=== PATIENT | male | born 1955 | race American Indian/Alaskan Native ===

== ENCOUNTER 2020-05-05 11:37 | Outpatient (CLI) | payer MEDICARE, SELFPAY ==
--- NOTE | 2020-05-05 11:47 | CT_ITS ---
WS: [id number] CTA CHEST ABDOMEN AND PELVIS. HISTORY: Aortic atherosclerosis. Short of breath. TECHNIQUE: CT angiogram is performed through the chest with and without contrast. CT angiogram with c ontrast through the abdomen and pelvis with IV contrast. Sagittal and coronal reformats have been sub mitted. MIP imaging also reviewed. All CT scans at [facility] use at least one of these d ose optimization techniques: automated exposure control; mA and/or kV adjustment per patient size (in cludes targeted exams where dose is matched to clinical indication); or iterative reconstruction. Contrast: Omnipaque 350; 95 cc IV. DLP: 2763.06 mGy.cm COMPARISON: None. Chest CTA: Good opacification of the thoracic aorta. Great vessels arise normally. Normal size of the thoracic aorta. No dissection or aneurysm. No ulcerating plaques. Pulmonary artery is normal size. H eart size is normal. No pericardial or pleural effusions. Mild hyperexpansion of the lungs. No pneumo america. Benign granuloma superior segment LEFT lower lobe. Mediastinal and hilar lymph nodes. Largest ly mph node at the RIGHT hilum measures 12 mm in short axis diameter. Small hiatal hernia. Abdomen CTA: Normal size liver. Gallbladder has been removed. Spleen, adrenal glands and kidneys are negative for acute process. Exophytic cyst from the mid LEFT kidney. No renal obstruction. Normal abdominal aorta. No aneurysm. Iliac arteries are patent bilaterally. Normal appendix. Ventral abdominal wall hernia. Pelvic CTA: Normal appearance of the iliac arteries and femoral arteries. No obstruction. No aneurysm or dissection. No free fluid in the pelvis. Negative urinary bladder. Mild prostate gland enlargemen t. No adenopathy. CT/CT angio chest abdomen pelvis IMPRESSION: 1. Minimal atherosclerosis thoracic and abdominal aorta. No dissection or aneu rysm. 2. Prior cholecystectomy. 3. No pneumonia. 4. Mildly prominent lymph nodes in the mediastinum are probably reactive. 5. No GI tract obstruction. 6. LEFT renal cyst.
[2020-05-05 13:03] LABS: Blood Urea Nitrogen 19 mg/dL (8-23); Glomerular Filtration Rate 46.8 mL/min (90-130)
[2020-05-05] MEDS: iohexol 350 mg/mL 100 mL Btl IV (15:03)
== END 2020-05-05 11:38 | disposition home or self-care (01) ==
LOC: RAD 11:44
PROVIDERS: PCP Family Medicine; Visit Provider Registered Nurse
DX: I70.0 Atherosclerosis of aorta (principal); R06.02 Shortness of breath; N28.1 Cyst of kidney, acquired
CPT/HCPCS: 36415; 71275; 74174; 82565; 84520

== ENCOUNTER 2020-10-13 08:08 | Outpatient (CLI) | payer MEDICARE, SELFPAY ==
[2020-10-13 08:17] VITALS: BMI 32.3
--- NOTE | 2020-10-13 08:30 | ECG_ITS ---
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 Interpretive Statements NAME OF STUDY: LEXISCAN SESTAMIBI STRESS TEST INDICATION: [Chest Pain] Procedure: At the baseline, the blood pressure was 141/99 mmHg with a heart rate of 53 bpm. The electrocardiogram showed sinus bradycardia, normal axis with normal ST and T's. The Lexiscan was infused over a period of 20 seconds. A total of 0.4 mg of Lexiscan was infused. The stress phase was continued for a total of 5 minutes. Heart rate was at the end of stress phase was 63 bpm and a blood pressure of 132/97 mmHg. The EKG at the peak infusion revealed since normal sinus rhythm with no significant ST-T wave changes. Sestamibi was injected 20 seconds after the Lexiscan infusion. Blood pressure at the end of recovery phase was 150/99 mmHg with a heart rate of 62 bpm. Conclusion: 1. Normal EKG response to Lexiscan infusion 2. No Lexiscan induced chest pain or cardiac arrhythmia. 3. Normal blood pressure and heart rate response. 4. Sestamibi/sestamibi perfusion scan pending; see separate report. Electronically Signed On 10-21-2020 12:35:01 CDT by Jaylen Schneider M.D. [id number]
--- NOTE | 2020-10-13 08:30 | NMCV_ITS ---
NM emil perf SPECT r/s* [id number] Mason Kulkarni Age: 65 Gender: M : 1955 Exam Date: 10/13/2020 09:24 Ordering Phys: Ric Solorio MD ([email or web address]) Technologist: DANNY Canas Exam Location: [facility] Indications: Chest pain STRESS TEST Please see separate stress test report in [facility] for full findings IMAGE PROTOCOL Rest/Stress 1 Lexiscan Day Radiopharmaceutical Dose (mCi) Administration Site Administered by Rest: Tc-99m 10.8 IV DANNY Canas Sestamibi Stress:Tc-99m 32.0 IV DANNY Canas Sestamilluvia Rest: 13-Oct-2020 60 Discovery 630 Stress: 13-Oct-2020 45 Discovery 630 0.4mg Lexiscan. Images obtained in supine and prone position. SPECT RESULTS Technical Quality: Good Raw Data Analysis: Normal Image Corrections: No attenuation or motion correction applied Summed Stress Score: 2 Summed Rest Score: 5 Summed Difference Score: 0 PERFUSION FINDINGS There is a small in size, mild in intensity perfusion defect noted in the apical and apical lateral wall that improves on stress. This likely represents attenuation artifact. No significant ischemia is noted FUNCTIONAL RESULTS (calculated via Gated SPECT) Stress Image LV EF (%): 67 Stress EDV (mL):101 TID: 1 Stress ESV (mL):33 FUNCTIONAL FINDINGS: Normal LV systolic function IMPRESSIONS 1. No evidence of ischemia present. Attenuation artifact in the apical/apical lateral rojas noted. 2. LV systolic function is normal Jaylen Schneider MD (Electronically Signed) Final Date: 15 Oct 2020 18:07 S
[2020-10-13] MEDS: regadenoson 0.4 Mg/5 ml Syringe IVP (09:59)
[2020-10-13 10:10] VITALS: BP 150/99; PULSE 63
== END 2020-10-13 08:09 | disposition home or self-care (01) ==
LOC: CDL 08:11
PROVIDERS: PCP Family Medicine; Visit Provider Internal Medicine Cardiovascular Disease
DX: R07.9 Chest pain, unspecified (principal)
CPT/HCPCS: 78452; 93017; A9500; J2785

== ENCOUNTER 2020-10-26 10:28 | Outpatient (CLI) | payer MEDICARE, SELFPAY ==
[2020-10-26 11:43] LABS: Basophils % 0.8 %; Eosinophils # 0.3 10^3/uL (0.0-0.8); Hematocrit 52.1 % (42.0-52.0); Hemoglobin 17.3 g/dL (11.7-16.6); Lymphocytes # 1.7 10^3/uL (0.8-4.8); Lymphocytes % 31.5 %; Mean Corpuscular HGB Conc 33.2 g/dL (30.0-36.0); Mean Corpuscular Volume 93.4 fL (80-94); Monocytes # 0.5 10^3/uL (0.2-0.9); Monocytes % 8.7 %; Neutrophils # 2.79 10^3/uL (1.8-7.7); Neutrophils % 52.6 %; Nucleated Red Blood Cells % 0 %; Platelet Count 159 10^3/cmm (130-400); Red Blood Count 5.58 10^6/uL (4.1-5.3); Red Cell Distribution Width 13.8 % (12.1-15.1); White Blood Count 5.3 10^3/uL (4.0-10.0)
[2020-10-26 12:09] LABS: Alanine Aminotransferase 22 U/L (0-41); Albumin Level 4.3 g/dL (3.5-5.2); Alkaline Phosphatase 59 IU/L (40-130); Anion Gap 12.2 (5-19); Aspartate Amino Transferase 21 U/L (0-40); Blood Urea Nitrogen 18 mg/dL (8-23); C Reactive Protein 1.1 mg/L (0.0-4.9); Calcium 8.9 mg/dL (8.5-10.5); Carbon Dioxide 28 mmol/L (22-29); Chloride 100 mmol/L (98-107); Globulin 3.4 g/dL (1.3-4.6); Glomerular Filtration Rate 55.1 mL/min (90-130); Glucose 93 mg/dL (65-115); Osmolality Calculated 284 mOsm/kg (285-295); Potassium 4.2 mmol/L (3.5-5.1); Sodium 136 mmol/L (136-145); Total Bilirubin 0.7 mg/dL (0.15-1.2); Total Protein 7.7 g/dL (6.6-8.7)
[2020-10-26 12:28] LABS: Erythrocyte Sedimentation Rate > 120 mm/hr (0-10)
[2020-10-27 12:52] LABS: Anti-Double Strand DNA AB <1 IU/mL; Centromere B Antibody <1.0 NEG AI (<1.0 NEG); JO-1 Antibody <1.0 NEG AI (<1.0 NEG); SS A Ro Sjogrens Antibody <1.0 NEG AI (<1.0 NEG); SS-B/LA IGG <1.0 NEG AI (<1.0 NEG); Sm/RNP Antibody <1.0 NEG AI (<1.0 NEG); Smith Antibody <1.0 NEG AI (<1.0 NEG)
[2020-10-27 13:27] LABS: Cyclic Citrullinated Peptide <16 UNITS
[2020-10-27 15:07] LABS: Immunoglobulin E 89 kU/L (<OR=114)
[2020-10-27 15:37] LABS: Alternaria Alternata (M6) Ige <0.10 kU/L; Alternaria Class 0; Bermuda Class 0/1; Bermuda Grass (G2) Ige 0.16 kU/L; Cat Dander (E1) Ige <0.10 kU/L; Cat Dander Class 0; Common Ragweed (Short) (W1) Ig <0.10 kU/L; D. Farinae Class 2; Dermatophagoides Class 2; Dermatophagoides Farinae (D2) 2.61 kU/L; Dog Dander (E5) Ige <0.10 kU/L; Dog Dander Class 0; Elm (T8) Ige 0.11 kU/L; Elm Class 0/1; English Plantain (W9) Ige 0.12 kU/L; English Plantain Class 0/1; House Dust (Greer) (H1) Ige 0.22 kU/L; House Dust (Hollister- Stier) 0.54 kU/L; House Dust Class 0/1; House Dust Class 1; Immunoglobulin E 91 kU/L (<OR=114); Johnson Grass (G10) Ige <0.10 kU/L; Johnson Grass Cl 0; June Grass Class 0; June Grass(Kentucky Blue) (G8) <0.10 kU/L; Lamb'S Quarters (Goose Foot) 0.21 kU/L; Lamb'S Quarters Class 0/1; Maple (Box Elder) (T1) Ige <0.10 kU/L; Maple Class 0; Meadow Fescue (G4) Ige <0.10 kU/L; Meadow Fescue Class 0; Mucor Racemosus Class 0; Oak (T7) Ige <0.10 kU/L; Oak Class 0; Orchard Grass (Cocksfoot) (G3) <0.10 kU/L; Penicillium Class 0; Penicillium Notatum (M1) Ige <0.10 kU/L; Perennial Rye Grass (G5) Ige <0.10 kU/L; Perennial Rye Grass Class 0; Ragweeed Class 0; Rough Marsh Elder (W16) Ige 0.15 kU/L; Rough Marsh Elder Class 0/1; Sweet Vernal Class 0; Sweet Vernal Grass (G1) Ige <0.10 kU/L; Timothy Grass (G6) Ige <0.10 kU/L; Timothy Grass Class 0
[2020-10-30 21:53] LABS: Aspergillus Fumigatus, Igg Ab, 70.4 mg/L (<=102)
== END 2020-10-26 10:29 | disposition home or self-care (01) ==
PROVIDERS: PCP Family Medicine; Visit Provider Internal Medicine Pulmonary Disease
DX: I50.32 Chronic diastolic (congestive) heart failure (principal); J45.909 Unspecified asthma, uncomplicated; M06.9 Rheumatoid arthritis, unspecified; R06.00 Dyspnea, unspecified; Z91.09 Other allergy status, other than to drugs and biological substances
CPT/HCPCS: 36415; 80053; 82785; 85025; 85651; 86003; 86140; 86225; 86235; 86331; 86431; 86606; 86609

== ENCOUNTER → 2021-01-31 11:54 | Outpatient (BNVA) | payer MEDICARE, SELFPAY | PROVIDERS: PCP Family Medicine; Referring Provider Registered Nurse; Visit Provider Orthopaedic Surgery | DX: S82.891A Other fracture of right lower leg, initial encounter for closed fracture (principal); S82.831A Other fracture of upper and lower end of right fibula, initial encounter for closed fracture; X58.XXXA Exposure to other specified factors, initial encounter; Z46.89 Encounter for fitting and adjustment of other specified devices; S82.831D Other fracture of upper and lower end of right fibula, subsequent encounter for closed fracture with routine healing; X58.XXXD Exposure to other specified factors, subsequent encounter | CPT/HCPCS: 73600; 73610; 97760; L4361 ==

== ENCOUNTER 2021-01-31 13:58 | Outpatient (CLI) | payer MEDICARE, SELFPAY | END 2021-01-31 13:59 | disposition home or self-care (01) | LOC: SPT 13:58 | PROVIDERS: PCP Family Medicine; Visit Provider Orthopaedic Surgery | DX: Z46.89 Encounter for fitting and adjustment of other specified devices (principal); S82.831D Other fracture of upper and lower end of right fibula, subsequent encounter for closed fracture with routine healing; X58.XXXD Exposure to other specified factors, subsequent encounter | CPT/HCPCS: 97760; L4361 ==

== ENCOUNTER → 2021-02-07 09:01 | Outpatient (BNVA) | payer MEDICARE, SELFPAY | PROVIDERS: PCP Family Medicine; Visit Provider Orthopaedic Surgery | DX: S82.891A Other fracture of right lower leg, initial encounter for closed fracture (principal); S82.831A Other fracture of upper and lower end of right fibula, initial encounter for closed fracture; X58.XXXA Exposure to other specified factors, initial encounter | CPT/HCPCS: 73610 ==

== ENCOUNTER → 2021-02-27 08:50 | Outpatient (BNVA) | payer MEDICARE, SELFPAY | PROVIDERS: PCP Family Medicine; Visit Provider Orthopaedic Surgery | DX: S82.891A Other fracture of right lower leg, initial encounter for closed fracture (principal); S82.831A Other fracture of upper and lower end of right fibula, initial encounter for closed fracture; X58.XXXA Exposure to other specified factors, initial encounter | CPT/HCPCS: 73610 ==

== ENCOUNTER → 2021-03-20 09:22 | Outpatient (BNVA) | payer MEDICARE, SELFPAY | PROVIDERS: PCP Family Medicine; Visit Provider Orthopaedic Surgery | DX: S82.891A Other fracture of right lower leg, initial encounter for closed fracture (principal); S82.831A Other fracture of upper and lower end of right fibula, initial encounter for closed fracture; X58.XXXA Exposure to other specified factors, initial encounter | CPT/HCPCS: 73610 ==

== ENCOUNTER → 2022-02-20 10:28 | Outpatient (BNVA) | payer MEDICARE, SELFPAY | PROVIDERS: PCP Family Medicine; Visit Provider Nurse Practitioner Family | DX: W22.8XXA Striking against or struck by other objects, initial encounter (principal); S49.92XA Unspecified injury of left shoulder and upper arm, initial encounter | CPT/HCPCS: 99214 ==

== ENCOUNTER → 2022-03-13 15:10 | Outpatient (BNVA) | payer MEDICARE, SELFPAY | PROVIDERS: PCP Family Medicine; Visit Provider Nurse Practitioner Family | DX: X58.XXXD Exposure to other specified factors, subsequent encounter (principal); S46.012D Strain of muscle(s) and tendon(s) of the rotator cuff of left shoulder, subsequent encounter | CPT/HCPCS: 99214 ==

== ENCOUNTER 2022-03-28 09:37 | Day surgery (SDC) | payer MEDICARE, SELFPAY ==
[2022-03-27 13:18] VITALS: BMI 33.0
[2022-03-28] VITALS (14 sets, daily range): BP systolic 128–153; BP diastolic 82–99; PULSE 53–88; RESP 18–22; TEMP 36.1–36.5; O2SAT 91–97
[2022-03-28] MEDS: sodium chloride 0.9% 1,000 ML 30 ML IV (10:12)
[2022-03-28 10:30] LABS: Anion Gap 13.6 (5-19); Blood Urea Nitrogen 16 mg/dL (8-23); Calcium 9.5 mg/dL (8.5-10.5); Carbon Dioxide 29 mmol/L (22-29); Chloride 97 mmol/L (98-107); Glomerular Filtration Rate 54.9 mL/min (90-130); Glucose 108 mg/dL (65-115); Osmolality Calculated 284 mOsm/kg (285-295); Potassium 3.6 mmol/L (3.5-5.1); Sodium 136 mmol/L (136-145)
--- NOTE | 2022-03-28 10:33 | ANES.PREANE2 ---
Pre-Anesthetic Assessment Height/Weight: Height 1.85 m Weight 113.398 kg Temp Pulse Resp BP Pulse Ox O2 Del Method 97.7 F 58 L 18 147/90 95 03/28/22 09:45 03/28/22 09:45 03/28/22 09:45 03/28/22 09:45 03/28/22 09:45 03/28/22 09:53 Preop Diagnosis: Rotator cuff tear left shoulder Operation Date: 03/28/22 11:10 Proposed Procedures p Shoulder Arthroscopy(Not Applicable) - Willie Arevalo MD s Rotator Cuff Repair(Not Applicable) - Willie Arevalo MD Familial anesthetic complications: None Was Beta Luis taken within 24 hours: N/A Was Clonidine taken within 24 hours: N/A Last intake: Intake Last Liquid Date 03/27/22 Last Liquid Time 23:30 Last Solid Date 03/27/22 Last Solid Time 23:30 Social No alcohol and No tobacco Exam alert, oriented x 3, clear to auscultation bilaterally and regular rate & rhythm Airway Mallampati: Class III Dentition: partials Pulmonary Asthma (allergic asthma - severe per patient's ) and Exertional Dyspnea Congested today d/t skipping allergy dose - will give benadryl per patient request CV/HEM Congestive Heart Failure and Hypertension Denies any recent chest pain Musc/skel Rheumatoid Arthritis Anesthetic Plan ASA status: 3 Anesthesia: General Other: patient declined nerve block Risk of > 500 ml blood loss (7ml/kg in children): No Medications/Allergies Home Medications Medication Instructions Recorded Confirmed Last Taken Type alprazolam 0.25 mg tablet 0.25 mg PO QID PRN anxiety 07/03/20 03/28/22 03/27/22 History citalopram 20 mg tablet 10 mg PO DAILY 07/03/20 03/27/22 03/27/22 History diphenhydramine HCl 25 mg capsule 25 mg PO Q6H PRN Chest Pain 07/03/20 03/27/22 03/27/22 History (Benadryl) hydrochlorothiazide 25 mg tablet 25 mg PO DAILY 07/03/20 03/28/22 03/27/22 History metoprolol tartrate 25 mg tablet 25 mg PO BID 30 days #60 tabs 07/03/20 03/28/22 03/28/22 Rx nitroglycerin 0.4 mg sublingual 0.4 mg sublingual Q5M PRN chest 09/04/20 03/27/22 Unknown Rx tablet pain 30 days #30 tabs Cam Walker #1 ea 01/31/21 03/13/22 Unknown Rx acetaminophen 300 mg-codeine 30 mg 1 tab PO Q6H PRN pain 7 days #28 03/13/22 03/28/22 03/27/22 Rx tablet tabs Allergies Allergy/AdvReac Type Severity Reaction Status Date / Time amoxicillin Allergy anaphylaxis Verified 03/13/22 15:28 cefixime [From Suprax] Allergy ALGY-Hives Verified 03/28/22 09:52 erythromycin base Allergy ALGY-Hives Verified 03/28/22 09:52 hydrocodone Allergy anaphylaxis Verified 03/13/22 15:28 Penicillins Allergy anaphylaxis Verified 03/13/22 15:28 Current Medications Generic Name Dose Route Start Last Admin Trade Name Freq PRN Reason Stop Dose Admin Sodium Chloride 1,000 mls @ 30 mls/hr 03/28/22 09:45 03/28/22 10:12 Sodium Chloride 0.9% IV 03/29/22 09:44 30 mls/hr .Q24H ALIYAH Administration PFSH Anesthesia Medical History Aortic atherosclerosis Chest pain Chronic diastolic (congestive) heart failure Essential hypertension Generalized anxiety disorder Gluten intolerance Hilar lymphadenopathy Leg edema Major depressive disorder Shortness of breath on exertion Surgical History History of throat surgery Hx of cholecystectomy Family History Mother Dementia Diabetes Brother Diabetes Other Thyroid disease Denies family history of CAD (coronary artery disease) Clotting disorder Chronic kidney disease (CKD) Suicide Anesthesia complication Bleeding disorder Lung disease Cancer Stroke Social History Smoking and tobacco status: never smoked Second hand smoke exposure: Yes Smoking risk assessment/counseling performed?: Yes Alcohol intake: never Lives independently: Yes Household members: spouse Marital status: service: No Current occupational status: employed Current occupation: self-employed Pets and animals: Yes History of recent travel: No Current gender identity: Male Data Anesthesia : 03/28/22 09:59 BMP 03/28/22 09:59 Sodium 136 Potassium 3.6 Chloride 97 L Carbon Dioxide 29 BUN 16 Creatinine 1.3 H Glucose 108 Calcium 9.5 Cardiac Studies: Sestamibi Stress Test (Cardiology) 10/13/20
[2022-03-28] MEDS: diphenhydrAMINE 50 mg/mL SDV 1mL 12.5 MG IVP (10:39)
--- NOTE | 2022-03-28 10:53 | W.PM.OPSUD ---
Surgery/Procedure H&P Update DATE OF PROCEDURE: March 28, 2022 DATE H&P PERFORMED: 03/13/22 H&P UPDATE INFORMATION: I have reviewed H&P completed within last 30 days PREOP DIAGNOSIS: Rotator cuff tear left shoulder PLANNED PROCEDURE: Operation Date: 03/28/22 11:10 Proposed Procedures p Shoulder Arthroscopy(Not Applicable) - Willie Arevalo MD s Rotator Cuff Repair(Not Applicable) - Willie Arevalo MD
[2022-03-28] MEDS: ceFAZolin 2,000 MG in sodium chloride 0.9% (plus) 50 ML 100 MG IV (11:30)
--- NOTE | 2022-03-28 13:48 | P.OP_ITS ---
Operative Report Date of procedure: March 28, 2022 Pre-op diagnosis: Preop Diagnosis Rotator cuff tear left shoulder Post-op diagnosis: same Post-op diagnosis: Tear left rotator cuff, impingement, instability left biceps tendon Procedure done: Arthroscopic rotator cuff repair, arthroscopic left subacromial decompression, arthroscopic biceps tenodesis left shoulder Implants: Meade and Nephew Helicoil 4.5 mm anchors x3, Meade and Nephew Multifix 5.5 mm anchors x2, Meade and Nephew Q fix x1 Estimated blood loss: 10 Complications: None Findings: Patient had a large tear of the rotator cuff involving the entirety of the supraspinatus and proximal half of the infraspinatus. The biceps tendon was uncovered and unstable. He had anterior spurring of the acromion. No significant degenerative changes were seen of the glenohumeral joint and only minor degenerative changes of the labrum were encountered Procedure: The patient was taken to the operating room and given a general anesthesia. He was positioned in the lateral position and prepped and draped with his arm in traction. A timeout was performed. A posterior portal was made 2 cm inferior medial to the posterior corner of the acromion. A scope cannula and trocar were driven into the glenohumeral joint. An anterior working portal was made with a scalpel blade. The glenohumeral arthroscopy was performed. Really no significant glenohumeral degenerative changes were noted. Mild amounts of labral tearing was lightly debrided back with the Meade and Nephew Werewolf probe. Arthroscopy equipment was then removed and placed in the subacromial space. A lateral working portal was fashioned. Utilizing the Meade and Nephew Werewolf probe bursal tissue was removed. The leading edge of the acromion and a tear were outlined. As the biceps tendon was completely uncovered and unstable I decision was made to proceed with a tenodesis. The bicipital groove was debrided beneath the biceps tendon with incisor shaver. The lateral stab wound a Q fix anchor was placed in the groove. Sutures were passed around the biceps and a luggage tag fashion in the biceps and found tightly down to bone. The werewolf was then used to release the biceps approximately 1 cm medial to the tenodesis site. Working through the cuff the remainder of the biceps stump attached to the labrum was debrided. Leading edge of the acromion was outlined. There was a tight space with prominent spurring of the anterior acromion. To make room for the repair and minimize impingement on the repair acromioplasty was performed. Working through the lateral portal a 5.5 mm acromionizer was introduced and approximately 5 mm of anterior inferior acromion were removed. Next attention was focused on the rotator cuff. Front was debrided to vascular bone. Very of large tear perhaps 3 cm in length was identified with perhaps a centimeter tenderness of retraction. Initially a Meade and Nephew Helicoil 4.5 mm anchor was placed in the posterior medial debrided footprint. A Meade and NephBenchling FirstPass suture passer was used to shuttle each limb of the through the cuff of about 8 mm from the tendon edge with the sutures approximately 5 mm apart. This was repeated with a second anchor in the midportion of the tear and tape sutures passed in identical fashion. A final anchor was placed in the anterior medial tuberosity and a third set of sutures passed through the cuff. These were secured with a sliding Pierce knot and alternating half hitches to the lateral portal bringing the cuff to the medial edge of bone. Finally 1 limb of the tenodesis suture was passed through the most anterior rotator cuff tear with the first pass and that was secured and no suture was cut. Next 1 suture from each anchor was passed through a multi fix anchor and and that anchor placed in the posterior lateral abraded tuberosity. A second Meade and Nephew Multifix anchor was placed in the anterior lateral cuff with the remaining 3 sutures. The 3 sutures through each anchor brought the lateral cuff down to bone. The shoulder was irrigated with saline. Portals were closed with 3-0 Prolene. Sterile dressings were applied. The patient was placed in a sling. He was extubated taken to recovery in stable condition.
[2022-03-28] MEDS: fentaNYL 50 mcg/mL INJ 2mL IVP (14:26)
--- NOTE | 2022-03-28 14:51 | ANE.PACU2 ---
Inpatient post-anesthesia follow up: Airway intact: Yes Vital signs: Temperature 97.1 F Pulse Rate 58 Respiratory Rate 18 Blood Pressure 141/90 Pulse Oximetry 94 Oxygen Delivery Me thod Nasal Cannula Oxygen Flow Rate 3 Fraction of Inspir ed Oxygen Hydration adequate: Yes Nausea and vomiting: No Pain level: 1 Mental status: Baseline
== END 2022-03-28 16:18 | disposition home or self-care (01) ==
PROVIDERS: Anesthesiology; PCP Family Medicine; Visit Provider Orthopaedic Surgery
PROC: (CPT 29805; principal; 2022-03-28 10:40)
PROC: (CPT 29826; 2022-03-28 10:40)
DX: M75.102 Unspecified rotator cuff tear or rupture of left shoulder, not specified as traumatic (principal); I11.0 Hypertensive heart disease with heart failure; I50.9 Heart failure, unspecified; M06.9 Rheumatoid arthritis, unspecified; I10 Essential (primary) hypertension; F41.9 Anxiety disorder, unspecified
CPT/HCPCS: 29826; 29827; 29828; 80048; C1713; J1100; J1200; J2405; J2704; J2710; J3010; J3490; J7030

== ENCOUNTER → 2022-04-01 13:45 | Outpatient (BNVA) | payer MEDICARE, SELFPAY | PROVIDERS: PCP Family Medicine; Visit Provider Nurse Practitioner Family | DX: Z48.89 Encounter for other specified surgical aftercare (principal) | CPT/HCPCS: 99213 ==

== ENCOUNTER → 2022-04-11 12:48 | Outpatient (BNVA) | payer MEDICARE, SELFPAY | PROVIDERS: PCP Family Medicine; Visit Provider Nurse Practitioner Family | DX: Z48.89 Encounter for other specified surgical aftercare (principal) | CPT/HCPCS: 99213 ==

== ENCOUNTER → 2022-06-26 08:08 | Outpatient (BNVA) | payer MEDICARE, SELFPAY | PROVIDERS: PCP Family Medicine; Visit Provider Nurse Practitioner Family | DX: Z48.89 Encounter for other specified surgical aftercare (principal) | CPT/HCPCS: 99213 ==

== ENCOUNTER → 2022-08-21 07:46 | Outpatient (BNVA) | payer MEDICARE, SELFPAY | PROVIDERS: PCP Family Medicine; Visit Provider Nurse Practitioner Family | DX: Z98.890 Other specified postprocedural states (principal) | CPT/HCPCS: 99212; 99213 ==

== ENCOUNTER 2022-11-06 16:19 | Emergency (ER) | payer MEDICARE, SELFPAY ==
[2022-11-06] VITALS (7 sets, daily range): BP systolic 121–132; BP diastolic 78–94; PULSE 59–62; RESP 14–18; TEMP 36.7; O2SAT 90–98; BMI 32.4
--- NOTE | 2022-11-06 16:28 | ECG_ITS ---
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 Measurements Intervals [place] Rate: 62 P: 41 PA: 222 QRS: 18 QRSD: 85 T: 25 QT: 410 QTc: 419 Interpretive Statements SINUS RHYTHM WITH FIRST DEGREE AV BLOCK No previous ECG available for comparison Electronically Signed On 11-06-2022 22:23:37 CDT by Ric Solorio M.D. [id number]
--- NOTE | 2022-11-06 16:35 | XRR_ITS ---
PROCEDURE INFORMATION: Exam: XR Chest Exam date and time: 11/06/2022 4:41 PM Age: 67 years old Clinical indication: Pain; Angina pectoris; Additional info: Chest pain TECHNIQUE: Imaging protocol: Radiologic exam of the chest. Views: 1 view. COMPARISON: MR shoulder LT wo con* [id number] 03/08/2022 2:30 PM FINDINGS: Lungs: Unremarkable. No consolidation. Pleural spaces: Unremarkable. No pleural effusion. No pneumothorax. Heart/Mediastinum: Unremarkable. No cardiomegaly. Bones/joints: Unremarkable. XR/XR chest 1V portable [id number] IMPRESSION: No acute findings.
[2022-11-06 16:46] LABS: Basophils # 0.1 10^3/uL (0.0-0.1); Basophils % 0.6 %; Eosinophils # 0.3 10^3/uL (0.0-0.8); Eosinophils % 3.7 %; Hematocrit 48.1 % (42.0-52.0); Lymphocytes % 24.7 %; Mean Corpuscular HGB Conc 33.3 g/dL (30.0-36.0); Mean Corpuscular Hemoglobin 29.9 pg (28.0-34.0); Mean Corpuscular Volume 89.9 fl (80-94); Mean Platelet Volume 9.7 fL (7.4-10.4); Monocytes # 0.7 10^3/uL (0.2-0.9); Monocytes % 8.7 %; Neutrophils # 5.13 10^3/uL (1.8-7.7); Neutrophils % 62.1 %; Nucleated Red Blood Cells % 0 %; Platelet Count 170 10^3/cmm (130-400); Red Blood Count 5.35 10^6/uL (4.1-5.3); White Blood Count 8.3 10^3/uL (4.0-10.0)
[2022-11-06 17:01] LABS: Troponin(5th) Baseline 14 ng/L (0-15)
[2022-11-06 17:08] LABS: Alanine Aminotransferase 27 U/L (0-41); Albumin Level 4.3 g/dL (3.5-5.2); Alkaline Phosphatase 69 U/L (40-130); Aspartate Amino Transferase 29 U/L (0-40); Blood Urea Nitrogen 22 mg/dL (8-23); Calcium 9.2 mg/dL (8.5-10.5); Carbon Dioxide 24 mmol/L (22-29); Globulin 2.6 g/dL (1.3-4.6); Glomerular Filtration Rate 46.4 mL/min (90-130); Glucose 90 mg/dL (65-115); Total Bilirubin 0.7 mg/dL (0.15-1.2); Total Protein 6.9 g/dL (6.6-8.7)
[2022-11-06 17:17] LABS: Anion Gap 15.7 (5-19); Chloride 99 mmol/L (98-107); Osmolality Calculated 283 mOsm/kg (285-295); Potassium 3.7 mmol/L (3.5-5.1); Sodium 135 mmol/L (136-145)
--- NOTE | 2022-11-06 17:26 | ED_ITS ---
HPI - Chest Pain General: Chief Complaint: Chest Pain Stated Complaint: CHEST PAIN Time Seen by Provider: 11/06/22 16:35 History of Present Illness: Patient is a 67-year-old male comes to the ED with chest pain and shortness of breath. Symptoms started this morning while he was working. He says he was lifting some lumber up over his head. As soon as he lifted lumber up over his head he started developing shortness of breath and was having trouble catching his breath for about 20 minutes afterwards. He continued to work once he started feeling better and the same thing happened when he lifted the lumbar up over his head he started getting short notes of breath but then started developing some chest discomfort. He described it as palpitations with some epigastric pain that radiated up into his chest. Patient says he took a nitro at 3 PM this afternoon and that resolved his chest pain symptoms. Here in the ED he denies any current or active chest pain or shortness of breath. Denies any fevers, cough, abdominal pain, nausea/vomiting, bladder or bowel symptoms. Associated symptoms: Reports dyspnea and palpitations; Deny abdominal pain, fever(s), nausea or vomiting Review of Systems Const: Denies: fever(s), chills or fatigue Eyes: Denies: change in vision or eye discomfort ENMT: Denies: throat pain, odynophagia, nasal discharge or nasal congestion Card: Reports: chest pain and palpitations; Denies: edema, swelling of feet/ankles, dyspnea on exertion or orthopnea Resp: Reports: dyspnea; Denies: productive cough or non-productive cough GI: Denies: abdominal pain, nausea, vomiting, diarrhea, constipation or hematochezia : Denies: flank pain, difficulty urinating, dysuria or hematuria Musc: Denies: neck pain, back pain or extremity swelling Skin/Breast: Denies: rash or new lesions Neuro: Denies: headache(s), numbness in extremities or weakness in extremities PFS ED PFSH: Medical History Aortic atherosclerosis Chest pain Chronic diastolic (congestive) heart failure Essential hypertension Generalized anxiety disorder Gluten intolerance Hilar lymphadenopathy Leg edema Major depressive disorder Shortness of breath on exertion Surgical History History of throat surgery Hx of cholecystectomy Family History Mother Dementia Diabetes Brother Diabetes Other Thyroid disease Denies family history of CAD (coronary artery disease) Clotting disorder Chronic kidney disease (CKD) Suicide Anesthesia complication Bleeding disorder Lung disease Cancer Stroke Social History Smoking and tobacco status: never smoked Second hand smoke exposure: Yes Smoking risk assessment/counseling performed?: Yes Alcohol intake: never Substance/Drug Use: never Lives independently: Yes Household members: spouse Marital status: service: No Current occupational status: employed Current occupation: self-employed Pets and animals: Yes Do you think of yourself as: Straight/Heterosexual Current gender identity: Male Physical Exam Const: COMMON NORMALS: no acute distress, patient oriented x3 and alert HENMT: COMMON NORMALS: normocephalic HEAD & SCALP: normocephalic MOUTH: Normal oral and palatal mucosa present THROAT: posterior oropharynx normal and uvula midline Neck/C-Spine: COMMON NORMALS: supple GENERAL: Yes normal visual inspection Resp: COMMON NORMALS: normal respiratory effort, No retractions, No use of accessory muscles and clear to auscultation bilaterally AUSCULTATION: clear to auscultation bilaterally Cardio: COMMON NORMALS: regular rate, regular rhythm, S1 normal heart sound present, S2 normal heart sound present, No gallops present (Cardio), No clicks present (Cardio), No murmurs present (Cardio) and Peripheral pulses 2+ throughout RATE: regular rate RHYTHM: regular rhythm HEART SOUNDS: S1 normal heart sound present and S2 normal heart sound present PERIPHERAL PULSES: Peripheral pulses 2+ throughout GI: COMMON NORMALS: Normal to inspection, nondistended, normoactive bowel sounds present, Soft to palpation, non-tender and no masses PALPATION: Yes Soft to palpation : COMMON NORMALS: Yes no CVA tenderness BLADDER/KIDNEY EXAM: Yes no CVA tenderness Back/Pelvis: COMMON NORMALS: no CVA tenderness Extremity: COMMON NORMALS: normal to inspection and no pedal edema Neuro: COMMON NORMALS: patient oriented x3 SENSORIUM/ORIENTATION: Yes alert GAIT: Yes Normal gait present Skin: GENERAL SKIN EXAM: dry skin Course Vital Signs: Vital signs: Vital Signs Temperature 98.1 F 11/06/22 16:22 Pulse Rate 59 L 11/06/22 20:46 Respiratory Rate 16 11/06/22 20:46 Blood Pressure 121/78 11/06/22 20:46 Pulse Oximetry 94 11/06/22 20:46 Oxygen Delivery Me thod Room Air 11/06/22 16:26 MDM - Chest Pain Medical Decision Making Patient is a 67-year-old male comes to the ED with chest pain and shortness of breath. Symptoms started this morning while he was working. He says he was lifting some lumber up over his head. As soon as he lifted lumber up over his head he started developing shortness of breath and was having trouble catching his breath for about 20 minutes afterwards. He continued to work once he started feeling better and the same thing happened when he lifted the lumbar up over his head he started getting short notes of breath but then started developing some chest discomfort. He described it as palpitations with some epigastric pain that radiated up into his chest. Patient says he took a nitro at 3 PM this afternoon and that resolved his chest pain symptoms. Here in the ED he denies any current or active chest pain or shortness of breath. Denies any fevers, cough, abdominal pain, nausea/vomiting, bladder or bowel symptoms. Vitals are stable patient's O2 sat is around 92 to 94% on room air. Exam of patient is benign. CBC and CMP are unremarkable. First troponin 14 and 2-hour troponin was 13.69. EKG showed no acute findings. Chest x-ray showed no acute findings. BNP was 182. Home O2 eval was performed and patient did not qualify for home oxygen. He had no other episodes of shortness of breath or chest pain while here in the ED and he was stable for discharge home. He was diagnosed with atypical chest pain and shortness of breath on exertion. He was told to continue taking all his home medications as previously prescribed and to follow- up with his PCP within the next 2 days for reevaluation. Strict return to ED precautions given. I told him to rest and to not exert himself and till seen by his PCP for reevaluation. Patient understood and agreed with plan. Lab Data I reviewed the patient's lab results. 11/06/22 16:33 11/06/22 16:33 Radiology Impressions Chest X-Ray 11/06/22 16:35 IMPRESSION: No acute findings. Laboratory Results WBC 8.3 10^3/uL (4.0-10.0) 11/06/22 16:33 RBC 5.35 10^6/uL (4.1-5.3) H 11/06/22 16:33 Hgb 16.0 g/dL (11.7-16.6) 11/06/22 16:33 Hct 48.1 % (42.0-52.0) 11/06/22 16:33 MCV 89.9 fl (80-94) 11/06/22 16:33 MCH 29.9 pg (28.0-34.0) 11/06/22 16:33 MCHC 33.3 g/dL (30.0-36.0) 11/06/22 16:33 RDW 14.0 % (12.1-15.1) 11/06/22 16:33 Plt Count 170 10^3/cmm (130-400) 11/06/22 16:33 MPV 9.7 fL (7.4-10.4) 11/06/22 16:33 Neut % (Auto) 62.1 % 11/06/22 16:33 Lymph % (Auto) 24.7 % 11/06/22 16:33 [place] % (Auto) 8.7 % 11/06/22 16:33 Eos % (Auto) 3.7 % 11/06/22 16:33 Baso % (Auto) 0.6 % 11/06/22 16:33 Neut # (Auto) 5.13 10^3/uL (1.8-7.7) 11/06/22 16:33 Lymph # (Auto) 2.0 10^3/uL (0.8-4.8) 11/06/22 16:33 [place] # (Auto) 0.7 10^3/uL (0.2-0.9) 11/06/22 16:33 Eos # (Auto) 0.3 10^3/uL (0.0-0.8) 11/06/22 16:33 Baso # (Auto) 0.1 10^3/uL (0.0-0.1) 11/06/22 16:33 Nucleated RBC % (auto) 0 % 11/06/22 16:33 Nucleated RBCs # 0.0 /100WBC 11/06/22 16:33 Sodium 135 mmol/L (136-145) L 11/06/22 16:33 Potassium 3.7 mmol/L (3.5-5.1) 11/06/22 16:33 Chloride 99 mmol/L (98-107) 11/06/22 16:33 Carbon Dioxide 24 mmol/L (22-29) 11/06/22 16:33 Anion Gap 15.7 (5-19) 11/06/22 16:33 BUN 22 mg/dL (8-23) 11/06/22 16:33 Creatinine 1.5 mg/dL (0.7-1.2) H 11/06/22 16:33 GFR Calculation 46.4 mL/min (90-130) L 11/06/22 16:33 Glucose 90 mg/dL (65-115) 11/06/22 16:33 Calculated Osmolality 283 mOsm/kg (285-295) L 11/06/22 16:33 Calcium 9.2 mg/dL (8.5-10.5) 11/06/22 16:33 Total Bilirubin 0.7 mg/dL (0.15-1.2) 11/06/22 16:33 AST 29 U/L (0-40) 11/06/22 16:33 ALT 27 U/L (0-41) 11/06/22 16:33 Alkaline Phosphatase 69 U/L (40-130) 11/06/22 16:33 Troponin T Baseline 14 ng/L (0-15) 11/06/22 16:33 Troponin T 120 Minute 13.69 ng/L (0-15) 11/06/22 18:40 Delta Troponin T -0.31 ABS# (0-10) L 11/06/22 18:40 NT-Pro-B Natriuret Pep 182 pg/mL (0-125) H 11/06/22 16:33 Total Protein 6.9 g/dL (6.6-8.7) 11/06/22 16:33 Albumin 4.3 g/dL (3.5-5.2) 11/06/22 16:33 Globulin 2.6 g/dL (1.3-4.6) 11/06/22 16:33 EKG Data EKG 1: EKG interpretation date: 11/06/22 Interpretation: Sinus rhythm with first-degree AV block. [address] segment elevation or depression seen. Discharge Plan Discharge Patient Disposition: Home Clinical Impression: Atypical chest pain, Exertional shortness of breath Condition: Stable Prescriptions: No Action (DME) Gee Conner See Rx Instructions .ROUTE .MEDSUPPLY Qty: 1 0RF Rx Instructions: As directed hydrochlorothiazide 25 mg tablet 25 mg PO DAILY citalopram 20 mg tablet 10 mg PO DAILY alprazolam 0.25 mg tablet 0.25 mg PO QID PRN (Reason: anxiety) diphenhydramine HCl [Benadryl] 25 mg capsule 25 mg PO Q6H PRN (Reason: Chest Pain) metoprolol tartrate 25 mg tablet 25 mg PO BID 30 Days Qty: 60 5RF nitroglycerin 0.4 mg tablet, sublingual 0.4 mg sublingual Q5M PRN (Reason: chest pain) 30 Days Qty: 30 3RF Rx Instructions: until response; do not exceed 3 doses per episode mupirocin 2 % ointment 1 applic topical BID Qty: 15 0RF acetaminophen-codeine 300-30 mg tablet 1 tab PO Q6H PRN (Reason: pain) 7 Days Qty: 30 0RF Discharge Orders: Discharge ED (Routine); Ordered 11/06/22 Ordered By: Mason Johnson Referrals: Georgia Leyva DO [Primary Care Provider] - Discharge Diet: Regular Discharge Activity: Increase activity as tolerated Patient Instructions: Chest Pain (DC), Shortness of Breath (ED) Activity Restrictions/Additional Instructions: Follow-up with medical provider as directed in the next 2 to 3 days for reevaluation. Continue taking all home medications as previously prescribed. Return to the ER or your medical provider if condition worsens. Please read and understand discharge instructions. Thank you for choosing [facility] for your healthcare needs today. Please realize this is an emergency room and that we are providing you with a medical screening exam and this may not be complete and all inclusive of all the testing and or work up that you may need to determine your ailment or severity of your illness. It is very important that you follow up as instructed or that you return to the Emergency Department should you have concerns or if your condition changes or worsens in any way. Coding Level of Care Code ED Anthropological Linguist for Mika Smith
--- NOTE | 2022-11-06 18:35 | ECG_ITS ---
[facility] Test Date: 2022-11-06 Pat Name: Mason Kulkarni Department: Room: Gender: Male Virtual Reality Specialist: : 1955 Requested By: Fallon Greenfield Order Number: [id number] Eulogio MD: Ric Solorio M.D. Measurements Intervals [place] Rate: 58 P: 38 MD: 223 QRS: 2 QRSD: 82 T: 40 QT: 432 QTc: 427 Interpretive Statements SINUS BRADYCARDIA WITH FIRST DEGREE AV BLOCK Compared to ECG 11/06/2022 16:28:18 Sinus rhythm no longer present Electronically Signed On 11-06-2022 22:56:16 CDT by Ric Solorio M.D. [id number]
[2022-11-06 18:39] LABS: NT Pro B Type Natriuretic Pept 182 pg/mL (0-125)
[2022-11-06 19:40] LABS: Troponin 5 2HR 13.69 ng/L (0-15)
[2022-11-06 19:44] LABS: Troponin 5 2HR Delta -0.31 ABS# (0-10)
== END 2022-11-06 20:48 | disposition home or self-care (01) ==
PROVIDERS: Physician Assistant; Emergency Provider Physician Assistant; PCP Family Medicine
DX: R07.89 Other chest pain (principal); R06.02 Shortness of breath; Z77.22 Contact with and (suspected) exposure to environmental tobacco smoke (acute) (chronic); I11.0 Hypertensive heart disease with heart failure; I50.32 Chronic diastolic (congestive) heart failure
CPT/HCPCS: 36415; 71045; 80053; 83880; 84484; 85025; 93005; 99285

== ENCOUNTER → 2022-11-29 10:46 | Outpatient (BNVA) | payer MEDICARE, SELFPAY | PROVIDERS: PCP Family Medicine; Visit Provider Internal Medicine Cardiovascular Disease | DX: I11.0 Hypertensive heart disease with heart failure (principal); I50.32 Chronic diastolic (congestive) heart failure; F41.1 Generalized anxiety disorder | CPT/HCPCS: 99213 ==

== ENCOUNTER 2022-12-19 08:03 | Outpatient (CLI) | payer MEDICARE, SELFPAY ==
[2022-12-19 08:18] VITALS: BMI 33.0
--- NOTE | 2022-12-19 08:19 | ECG_ITS ---
[facility] Test Date: 2022-12-19 Pat Name: Mason Kulkarni Department: Room: Gender: Male Video Poker Floorman: Bisi Balderas : 1955 Requested By: Garrett Darnell Order Number: [id number] Eulogio MD: Ric Solorio M.D. Interpretive Statements NAME OF STUDY: LEXISCAN SESTAMIBI STRESS TEST INDICATION: Chest Pain, PROCEDURE: At the baseline, the EKG revealed normal sinus rhythm with a normal ST Ts. The baseline heart was 61 bpm with a blood pressue of 159/105 mm of Hg Lexiscan was infused over a period of 20 seconds. A total of 0.4 milligrams of Lexiscan was infused. The stress phase was continued for a total of 5 minutes. Heart rate at the end of the stress phase was 70 bpm with a blood pressure 152/97 mm of Hg. The EKG at the peak infusion revealed no significant changes. Sestamibi was injected 20 seconds after the Lexiscan infusion. Heart rate at the end of the recovery phase was 69 bpm with a blood pressure of 128/91 mm of Hg. CONCLUSION: 1. No significant EKG changes with the LexiScan infusion 2. No LexiScan induced chest pain or cardiac arrhythmia 3. Normal blood pressure and heart rate response 4. Sestamibi/sestamibi perfusion scan pending; see separate report. Electronically Signed On 12-19-2022 18:04:25 CDT by Ric Solorio M.D. [id number]
--- NOTE | 2022-12-19 08:19 | NMCV_ITS ---
NM emil perf SPECT r/s* [id number] Mason Kulkarni Age: 67 Gender: M : 1955 Exam Date: 12/19/2022 08:19 Ordering Phys: Garrett Darnell MD ([email or web address]) Technologist: DANNY Cuadra Exam Location: [facility] Indications: Chest Pain STRESS TEST Please see separate stress test report in [facility] for full findings IMAGE PROTOCOL Rest/Stress 1 Lexiscan Day Radiopharmaceutical Dose (mCi) Administration Site Administered by Rest: Tc-99m 10.5 IV DANNY Cuadra Sestamibi Stress:Tc-99m 32.8 IV DANNY Canas Sestamibi Rest: 19-Dec-2022 60 Discovery 630 Stress: 19-Dec-2022 30 Discovery 630 0.4mg Lexiscan. Images obtained in supine and prone position. SPECT RESULTS Technical Quality: Excellent Raw Data Analysis: Normal Image Corrections: No attenuation or motion correction applied Summed Stress Score: 0 Summed Rest Score: 2 Summed Difference Score: 0 PERFUSION FINDINGS Myocardial perfusion imaging revealing a small area of moderately decreased tracer uptake in the apical lateral region with no significant reversibility FUNCTIONAL RESULTS (calculated via Gated SPECT) Stress Image LV EF (%): 79 Stress EDV (mL):99 TID: 1.1 Stress ESV (mL):21 FUNCTIONAL FINDINGS: Segmental wall motion analysis revealing no gross wall motion abnormalities IMPRESSIONS 1. Myocardial perfusion imaging revealing small area of persistent decreased tracer uptake in the apical lateral region suggestive of myocardial scarring versus attenuation artifact 2. Normal LV ejection fraction 79%. 3. LV wall motion analysis revealing no gross wall motion abnormalities. 4. Normal LV volume Low probability for coronary ischemia, based on the above findings No similar previous studies are available for comparison Dr Ric Solorio MD [facility] (Electronically Signed) Final Date: 19 December 2022 13:57 S
[2022-12-19] MEDS: regadenoson 0.4 Mg/5 ml Syringe IVP (10:45)
[2022-12-19 11:00] VITALS: BP 128/91; PULSE 73
== END 2022-12-19 08:04 | disposition home or self-care (01) ==
PROVIDERS: PCP Family Medicine; Visit Provider Internal Medicine Cardiovascular Disease
DX: R07.9 Chest pain, unspecified (principal)
CPT/HCPCS: 36415; 78452; 93017; 96374; A9500; J2785

== ENCOUNTER 2023-01-29 15:37 | Outpatient (CLI) | payer MEDICARE, SELFPAY ==
--- NOTE | 2023-01-29 15:47 | CT_ITS ---
WS: [id number] CTA THORACIC AORTA WITH AND WITHOUT CONTRAST. HISTORY: OTHER FATIGUE, ABNORMAL CT CHEST TECHNIQUE: CT imaging of the thorax is performed with and without contrast. After noncontrast imaging is performed, CT angiogram is performed during injection of Omnipaque 350; 100 mL IV.. Sagittal and coronal reconstructions, sagittal and coronal MIP imaging is submitted. All CT scans at [facility] use at least one of these dose optimization techniques: automated exposure control; mA and/or k V adjustment per patient size (includes targeted exams where dose is matched to clinical indication); or iterative reconstruction. DLP: 958.58 mGy.cm COMPARISON: 05/05/2020 Very good opacification of the thoracic aorta. Mild atherosclerosis. No dilatation. Normal sized pulm onary artery. Normal sized great vessels. Heart is normal size. No pericardial or pleural effusions. Mediastinal and hilar lymphadenopathy persists. Some of these lymph nodes have increased by 2 mm. Lar gest lymph nodes at the hilar regions. Left interlobar lymph node 17 mm. Right hilar lymph node 12 mm . There are additional hilar and paratracheal lymph nodes which are stable. No pulmonary mass. No nodules. Benign calcification left lower lobe. Small hiatal hernia. Incompletely visualized left renal cyst measures 2.4 cm. No adrenal mass. Prior cholecystectomy. Mild thoracic spondylosis. IMPRESSION: 1. Very mild atherosclerosis thoracic aorta. No aneurysm or dissection. 2. No central filling defects in the pulmonary arteries. 3. Continued mediastinal and hilar lymphadenopathy. Lymph nodes are mildly enlarged but the distribu tion is similar to the study from 2019. With persistent adenopathy consider reactive adenopathy or ne oplastic such as lymphoma. 4. No pulmonary mass. 5. Small hiatal hernia. 6. Prior cholecystectomy.
[2023-01-29] MEDS: iohexol 350 mg/mL 500 mL Btl (per mL) IV (16:07)
== END 2023-01-29 15:38 | disposition home or self-care (01) ==
PROVIDERS: PCP Family Medicine; Visit Provider Nurse Practitioner
DX: R53.83 Other fatigue (principal); R91.8 Other nonspecific abnormal finding of lung field; I70.0 Atherosclerosis of aorta; R59.0 Localized enlarged lymph nodes; K44.9 Diaphragmatic hernia without obstruction or gangrene; Z90.49 Acquired absence of other specified parts of digestive tract
CPT/HCPCS: 71275; Q9967

== ENCOUNTER → 2023-02-25 13:10 | Outpatient (BNVA) | payer MEDICARE, SELFPAY | PROVIDERS: PCP Family Medicine; Referring Provider Nurse Practitioner; Visit Provider Internal Medicine Pulmonary Disease | DX: J82.83 Eosinophilic asthma (principal); I50.32 Chronic diastolic (congestive) heart failure; M06.9 Rheumatoid arthritis, unspecified; Z77.29 Contact with and (suspected) exposure to other hazardous substances; F41.1 Generalized anxiety disorder; J30.1 Allergic rhinitis due to pollen; J30.89 Other allergic rhinitis; Z77.22 Contact with and (suspected) exposure to environmental tobacco smoke (acute) (chronic) | CPT/HCPCS: 99214 ==

== ENCOUNTER 2023-03-25 08:07 | Outpatient (CLI) | payer MEDICARE, SELFPAY ==
--- NOTE | 2023-03-25 08:13 | US_ITS ---
WS: [id number] ULTRASOUND RENAL TECHNIQUE: Ultrasound examination of both kidneys. CLINICAL INFORMATION: RENAL CYST COMPARISON: None. FINDINGS: RIGHT: Right kidney is normal in size and appearance. Echogenicity: Normal. Cortical thickness: 1.3 cm; Normal. Hydronephrosis: None. Perinephric fluid: None. Right kidney measures: 12.4 cm x 5.1 cm x 4.6 cm. LEFT:Simple LEFT renal cyst mid kidney measuring 2.5 x 2.4 x 2.3 cm Left kidney is normal in size and appearance. Echogenicity: Normal. Cortical thickness: 1.6 cm; Normal. Hydronephrosis: None. Perinephric fluid: None. Left kidney measures: 12.3 cm x 5.8 cm x 5.6 cm. Normal visualized aorta. Bladder volume Prevoid bladder: estimated volume 530 ml. Postvoid bladder: estimated volume 164 ml. IMPRESSION: 1. Incomplete bladder emptying with post void bladder volume 164 cc 2. No hydronephrosis in either kidney. 3. Simple LEFT renal cyst mid kidney measuring 2.5 x 2.4 x 2.3 cm
== END 2023-03-25 08:08 | disposition home or self-care (01) ==
LOC: RAD 08:08
PROVIDERS: PCP Family Medicine; Visit Provider Nurse Practitioner
DX: N28.1 Cyst of kidney, acquired (principal); R33.9 Retention of urine, unspecified
CPT/HCPCS: 76770; 76857

== ENCOUNTER 2023-03-26 06:55 | Outpatient (CLI) | payer MEDICARE, SELFPAY | END 2023-03-26 06:56 | disposition home or self-care (01) | PROVIDERS: PCP Family Medicine; Visit Provider Internal Medicine Pulmonary Disease | DX: R06.02 Shortness of breath (principal) | CPT/HCPCS: 94010; 94618; 94726; 94729 ==

== ENCOUNTER 2023-04-16 08:25 | Emergency (ER) | payer MEDICARE, SELFPAY ==
[2023-04-16 08:34] VITALS: BP 166/101; PULSE 80; RESP 18; TEMP 36.7; O2SAT 96; BMI 33.0
--- NOTE | 2023-04-16 08:49 | ED_ITS ---
HPI - GI Bleed General: Chief complaint: GI Bleed Stated complaint: lower abd pain Time Seen by Provider: 04/16/23 08:33 Source: patient Mode of arrival: ambulatory History of Present Illness: 67-year-old male presents to the emergency room complaining of painless rectal bleeding with bowel movements. He states he has had blood with bowel movements beginning yesterday. Last month he had a colonoscopy and when she was told he removed a polyp but he had not heard any other information on it. He is not on any anticoagulants other than an occasional aspirin. He does have a history of diastolic congestive heart failure. He had a near syncopal episode earlier this year he had some work-up done including a stress test which was negative evidently this is still an ongoing work-up as an outpatient. MD complaint: gross hematochezia Onset (ago): day(s) (1) Relieving factors: none Exacerbating factors: bowel movement Associated symptoms: Reports abdominal pain; Denies chills, easy bruising, epistaxis, fever(s), headache(s), malaise, nausea, other bleeding, poor appetite, rash, syncope, vomiting or weakness Treatments Prior to Arrival: none Review of Systems Const: Denies: fever(s), chills or malaise ENMT: Denies: epistaxis Card: Denies: syncope Resp: Denies: dyspnea GI: Reports: abdominal pain; Denies: nausea or vomiting : Denies: dysuria, urinary frequency or urinary urgency Musc: Denies: neck pain or back pain Skin/Breast: Denies: rash Neuro: Denies: headache(s) [place]/Lymph: Denies: easy bruising PFS ED PFSH: Medical History Aortic atherosclerosis Chest pain Chronic diastolic (congestive) heart failure Essential hypertension Generalized anxiety disorder Gluten intolerance Hilar lymphadenopathy Leg edema Major depressive disorder Shortness of breath on exertion Surgical History History of throat surgery Hx of cholecystectomy Family History Mother Dementia Diabetes Brother Diabetes Other Thyroid disease Denies family history of CAD (coronary artery disease) Clotting disorder Chronic kidney disease (CKD) Suicide Anesthesia complication Bleeding disorder Lung disease Cancer Stroke Social History Smoking and tobacco/nicotine status: never used tobacco/nicotine Second hand smoke exposure: Yes Alcohol intake: never Substance/Drug Use: never Lives independently: Yes Household members: spouse Marital status: service: No Current occupational status: employed Current occupation: self-employed Pets and animals: Yes Do you think of yourself as: Straight/Heterosexual Current gender identity: Male Physical Exam Const: COMMON NORMALS: no acute distress GENERAL APPEARANCE: cooperative and comfortable ORIENTATION/CONSCIOUSNESS: Yes awake, Yes oriented to person, Yes oriented to place and Yes oriented to time HENMT: COMMON NORMALS: normocephalic, atraumatic and hearing grossly normal bilaterally HEAD & SCALP: normocephalic and atraumatic Resp: COMMON NORMALS: normal respiratory effort, No retractions, No use of accessory muscles and clear to auscultation bilaterally AUSCULTATION: clear to auscultation bilaterally Cardio: COMMON NORMALS: regular rate, regular rhythm and No murmurs present (Cardio) RATE: regular rate RHYTHM: regular rhythm GI: COMMON NORMALS: Soft to palpation and No hepatosplenomegaly present AUSCULTATION: Yes normoactive bowel sounds PALPATION: Yes Soft to palpation, No Tenderness to palpation present (GI), No Guarding due to palpation present (GI) and Yes No hepatosplenomegaly present Extremity: COMMON NORMALS: normal to inspection, capillary refill normal, no clubbing, cyanosis or edema, no calf tenderness and no pedal edema Neuro: SENSORIUM/ORIENTATION: Yes oriented to person, Yes oriented to place and Yes oriented to time Skin: COMMON NORMALS: no rashes or lesions noted GENERAL SKIN EXAM: no rashes or lesions noted Course Vital Signs: Vital signs: Vital Signs Temperature 98.1 F 04/16/23 08:34 Pulse Rate 70 04/16/23 09:30 Respiratory Rate 18 04/16/23 08:34 Blood Pressure 118/85 04/16/23 09:30 Pulse Oximetry 90 04/16/23 09:30 Oxygen Delivery Me thod Room Air 04/16/23 08:34 MDM - GI Bleed Medical Decision Making CT shows a left hemicolon colitis. No sigmoid diverticulitis no perforation. Patient recently had a colonoscopy there is a few polyps removed but no other findings per his report. Hemoglobin is stable. Blood only with bowel movements. Will discharge home with Cipro and metronidazole. Liquid diet for the next 24 to 48 hours. Follow-up with Dr. Short if not improving. Medical Records I reviewed the patient's medical records. Lab Data I reviewed the patient's lab results. 04/16/23 08:45 04/16/23 08:45 Laboratory Results WBC 8.05 10^3/uL (3.29-11.43) 04/16/23 08:45 RBC 5.81 10^6/uL (3.85-5.65) H 04/16/23 08:45 Hgb 17.60 g/dL (11.27-16.99) H 04/16/23 08:45 Hct 52.3 % (37-53) 04/16/23 08:45 MCV 90.0 fl (82-101) 04/16/23 08:45 MCH 30.3 pg (27-33) 04/16/23 08:45 MCHC 33.7 g/dL (30-55) 04/16/23 08:45 RDW 14.2 % (12.1-15.1) 04/16/23 08:45 Plt Count 186 10^3/cmm (157-399) 04/16/23 08:45 MPV 9.2 fL (7.4-10.4) 04/16/23 08:45 Neut % (Auto) 63.9 % 04/16/23 08:45 Lymph % (Auto) 22.7 % 04/16/23 08:45 [place] % (Auto) 9.7 % 04/16/23 08:45 Eos % (Auto) 2.9 % 04/16/23 08:45 Baso % (Auto) 0.4 % 04/16/23 08:45 Neut # (Auto) 5.15 10^3/uL (1.8-7.7) 04/16/23 08:45 Lymph # (Auto) 1.8 10^3/uL (0.8-4.8) 04/16/23 08:45 [place] # (Auto) 0.8 10^3/uL (0.2-0.9) 04/16/23 08:45 Eos # (Auto) 0.2 10^3/uL (0.0-0.8) 04/16/23 08:45 Baso # (Auto) 0.0 10^3/uL (0.0-0.1) 04/16/23 08:45 Nucleated RBC % (auto) 0 % 04/16/23 08:45 Nucleated RBCs # 0.0 /100WBC 04/16/23 08:45 PT 14.00 SECONDS (12.1-14.9) 04/16/23 08:45 INR 1.05 (0.8-1.2) 04/16/23 08:45 APTT 27.5 SECONDS (23.9-36.7) 04/16/23 08:45 Sodium 136 mmol/L (136-145) 04/16/23 08:45 Potassium 3.6 mmol/L (3.5-5.1) 04/16/23 08:45 Chloride 96 mmol/L (98-107) L 04/16/23 08:45 Carbon Dioxide 29 mmol/L (22-29) 04/16/23 08:45 Anion Gap 14.6 (5-19) 04/16/23 08:45 BUN 15 mg/dL (8-23) 04/16/23 08:45 Creatinine 1.4 mg/dL (0.7-1.2) H 04/16/23 08:45 GFR Calculation 50.2 mL/min (90-130) L 04/16/23 08:45 Glucose 113 mg/dL (65-115) 04/16/23 08:45 Calculated Osmolality 284 mOsm/kg (285-295) L 04/16/23 08:45 Calcium 9.5 mg/dL (8.5-10.5) 04/16/23 08:45 Total Bilirubin 1.5 mg/dL (0.15-1.2) H 04/16/23 08:45 AST 28 U/L (0-40) 04/16/23 08:45 ALT 39 U/L (0-41) 04/16/23 08:45 Alkaline Phosphatase 81 U/L (40-130) 04/16/23 08:45 Total Protein 7.6 g/dL (6.6-8.7) 04/16/23 08:45 Albumin 4.5 g/dL (3.5-5.2) 04/16/23 08:45 Globulin 3.1 g/dL (1.3-4.6) 04/16/23 08:45 All radiology interpretation(s) finalized by discharge Discharge Plan Discharge Patient Disposition: Home Clinical Impression: Colitis Condition: Stable Prescriptions: New Cipro 500 mg tablet 500 mg PO BID Qty: 14 0RF metronidazole 250 mg tablet 250 mg PO TID Qty: 21 0RF No Action (DME) Gee Conner See Rx Instructions .ROUTE .MEDSUPPLY Qty: 1 0RF Rx Instructions: As directed hydrochlorothiazide 25 mg tablet 25 mg PO QAM alprazolam 0.25 mg tablet 0.25 mg PO DAILY@16 diphenhydramine HCl [Benadryl] 25 mg capsule 25 mg PO Q6H PRN (Reason: Allergy Symptoms) nitroglycerin 0.4 mg tablet, sublingual 0.4 mg sublingual Q5M PRN (Reason: chest pain) 30 Days Qty: 30 3RF Rx Instructions: until response; do not exceed 3 doses per episode fluticasone propionate [Flonase Allergy Relief] 50 mcg/actuation spray,suspension 1 spray intranasal BID Rx Instructions: administer into each nostril citalopram 10 mg tablet 10 mg PO DAILY@16 Guaifenesin DM 10-100 mg/5 mL Syrup 5 - 10 ml PO Q4H PRN (Reason: Congestion) Aspir-81 81 mg Tablet,Delayed Release (Dr/Ec) 81 mg PO QAM tamsulosin 0.4 mg capsule 0.4 mg PO DAILY Rx Instructions: (not started as of 04/16/23 rx filled 04/07/23 90d/s) epinephrine 0.3 mg/0.3 mL auto-injector See Rx Instructions .ROUTE .COMPLEX Rx Instructions: as directed as needed Mucinex 600 mg Tablet Extended Release 12hr 300 mg PO BEDTIME Discharge Orders: Discharge ED (Routine); Ordered 04/16/23 Ordered By: Daron Obrien Referrals: Georgia Leyva DO [Primary Care Provider] - Discharge Diet: Full LIquid Discharge Activity: Increase activity as tolerated Patient Instructions: Opioid Safety, Pain Management Activity Restrictions/Additional Instructions: Thank you for choosing [facility] for your healthcare needs today. Please realize this is an emergency room and that we are providing you with a medical screening exam and this may not be complete and all inclusive of all the testing and or work up that you may need to determine your ailment or severity of your illness. It is very important that you follow up as instructed or that you return to the Emergency Department should you have concerns or if your condition changes or worsens in any way. You were seen today for rectal bleeding. CT shows you have a mild colitis. Recommend you start oral antibiotics ciprofloxacin 500 mg 1 twice daily for 7 days and metronidazole 250 mg 1 3 times a day for 7 days. Also recommend liquid diet for the next 3 to 4 days. Advance your diet as tolerated. It is very likely you will intermittently continue to have some rectal bleeding. Follow-up with your primary care doctor in the next 7 to 10 days. Coding Level of Care Code ED Freelance Art Director for Mika Smith
--- NOTE | 2023-04-16 08:51 | CT_ITS ---
WS: [id number] CT ABDOMEN PELVIS TECHNIQUE: Contrast-enhanced CT of the abdomen and pelvis with coronal and sagittal reformatted image s. CLINICAL INFORMATION: Rectal bleeding COMPARISON: CTA 2019 DLP: 1022.[address] scans at [facility] use at least one of these dose optimization techniques: automated e xposure control; mA and/or kV adjustment per patient size (includes targeted exams where dose is matc hed to clinical indication); or iterative reconstruction. FINDINGS: Diffuse transmural thickening and submucosal enhancement involving the LEFT descending colon suspicio us for colitis. Mild surrounding induration. No pneumatosis or free air. Normal sigmoid colon. Remain je of the colon is normal in appearance. Normal appendix. Diffuse fatty filtration of the liver. Normal portal vein and splenic vein. Cholecystectomy clips. No rmal spleen. Tiny esophageal hiatal hernia. Adrenal glands are normal. Mild fatty atrophy of the panc reas. Normal caliber abdominal aorta. Celiac and SMA are patent. Normal renal parenchymal enhancement . Small bilateral renal cysts. Incidental rectus sheath lipoma. Calcified enlarged prostate measuring 4.9 cm. Tiny fat-containing umbilical hernia. No abdominal or p elvic lymphadenopathy. Disc space narrowing L3-L5 with vacuum disc phenomenon. Moderate to severe asher tral canal stenosis L3-4. IMPRESSION: 1. Transmural thickening with submucosal enhancement involving the LEFT descending colon with surrou nding induration compatible with infectious or inflammatory colitis. 2. No free air or fluid collections. 3. Mild diffuse fatty infiltration of the liver. 4. Prior cholecystectomy. 5. Moderate to severe central canal stenosis L3-4 due to disc bulging in combination with facet arth ropathy and ligamentum flavum hypertrophy. This could be followed up with MRI. Notified Daron Obrien DO at 04/16/2023 9:58 AM.
[2023-04-16 08:54] LABS: Basophils % 0.4 %; Eosinophils # 0.2 10^3/uL (0.0-0.8); Eosinophils % 2.9 %; Hematocrit 52.3 % (37-53); Lymphocytes # 1.8 10^3/uL (0.8-4.8); Lymphocytes % 22.7 %; Mean Corpuscular HGB Conc 33.7 g/dL (30-55); Mean Corpuscular Hemoglobin 30.3 pg (27-33); Mean Platelet Volume 9.2 fL (7.4-10.4); Monocytes # 0.8 10^3/uL (0.2-0.9); Monocytes % 9.7 %; Neutrophils # 5.15 10^3/uL (1.8-7.7); Neutrophils % 63.9 %; Nucleated Red Blood Cells % 0 %; Platelet Count 186 10^3/cmm (157-399); Red Blood Count 5.81 10^6/uL (3.85-5.65); Red Cell Distribution Width 14.2 % (12.1-15.1); White Blood Count 8.05 10^3/uL (3.29-11.43)
--- NOTE | 2023-04-16 09:04 | PC.PHAR ---
pt states he takes care of his own medications-pt states he no longer uses his inhalers-pt states he stop using symbicort 80-4.5 mcg filled 02/25/23 60d.s 1p bid and albuterol hfa 2p qid prn 01/06/23 a month ago-pt states he hasnt started his flomax 0.4mg daily as of 04/16/23 rx filled 04/07/23 90d/s-pt states uses guaifenesin dm prn and takes mucinex 600mg takes 1/2 tabs (=300mg) hs-
[2023-04-16 09:07] VITALS: PULSE 75; O2SAT 95
[2023-04-16 09:14] LABS: Alanine Aminotransferase 39 U/L (0-41); Albumin Level 4.5 g/dL (3.5-5.2); Alkaline Phosphatase 81 U/L (40-130); Anion Gap 14.6 (5-19); Aspartate Amino Transferase 28 U/L (0-40); Blood Urea Nitrogen 15 mg/dL (8-23); Calcium 9.5 mg/dL (8.5-10.5); Carbon Dioxide 29 mmol/L (22-29); Chloride 96 mmol/L (98-107); Globulin 3.1 g/dL (1.3-4.6); Glomerular Filtration Rate 50.2 mL/min (90-130); Glucose 113 mg/dL (65-115); Osmolality Calculated 284 mOsm/kg (285-295); Potassium 3.6 mmol/L (3.5-5.1); Sodium 136 mmol/L (136-145); Total Bilirubin 1.5 mg/dL (0.15-1.2); Total Protein 7.6 g/dL (6.6-8.7)
[2023-04-16 09:24] LABS: INR 1.05 (0.8-1.2)
[2023-04-16 09:25] LABS: Partial Thromboplastin Time 27.5 SECONDS (23.9-36.7)
[2023-04-16 09:30] VITALS: BP 118/85; PULSE 70; O2SAT 90
== END 2023-04-16 10:13 | disposition home or self-care (01) ==
PROVIDERS: Emergency Provider Family Medicine; PCP Family Medicine
DX: K52.9 Noninfective gastroenteritis and colitis, unspecified (principal); Z79.82 Long term (current) use of aspirin; Z77.22 Contact with and (suspected) exposure to environmental tobacco smoke (acute) (chronic); I11.0 Hypertensive heart disease with heart failure; I50.9 Heart failure, unspecified
CPT/HCPCS: 36415; 74177; 80053; 85025; 85610; 85730; 99285

== ENCOUNTER → 2023-05-12 12:39 | Outpatient (BNVA) | payer MEDICARE, SELFPAY | PROVIDERS: PCP Family Medicine; Referring Provider Family Medicine; Visit Provider Specialist | DX: R56.9 Unspecified convulsions (principal); R07.9 Chest pain, unspecified; R07.89 Other chest pain; R06.00 Dyspnea, unspecified | CPT/HCPCS: 99205 ==

== ENCOUNTER 2023-05-19 08:05 | Outpatient (CLI) | payer MEDICARE, SELFPAY ==
[2023-05-22 18:55] LABS: Calculated Total (E+NE) 24 mcg/24 h (26-121); Catecholamines Total Volume 2000 mL; Urine Dopamine, 24 Hour 137 mcg/24 h (52-480)
[2023-05-29 14:30] LABS: 24 Hour Urine Volume 2000 mL; 5-HIAA, 24 Hour Urine 4.2 mg/24 h (< OR = 6.0)
== END 2023-05-19 08:06 | disposition home or self-care (01) ==
LOC: LAB 08:09
PROVIDERS: PCP Family Medicine; Visit Provider Specialist
DX: R56.9 Unspecified convulsions (principal); R07.9 Chest pain, unspecified; R07.89 Other chest pain
CPT/HCPCS: 82384; 82570; 83497

== ENCOUNTER → 2023-05-22 10:46 | Outpatient (BNVA) | payer MEDICARE, SELFPAY | PROVIDERS: PCP Family Medicine; Visit Provider Internal Medicine Cardiovascular Disease | DX: I11.0 Hypertensive heart disease with heart failure (principal); I50.32 Chronic diastolic (congestive) heart failure; R06.00 Dyspnea, unspecified; F41.1 Generalized anxiety disorder | CPT/HCPCS: 99213 ==

== ENCOUNTER → 2023-07-03 12:04 | Outpatient (BNVA) | payer MEDICARE, SELFPAY | PROVIDERS: Visit Provider Specialist | DX: R56.9 Unspecified convulsions (principal) | CPT/HCPCS: 95816 ==

== ENCOUNTER → 2023-07-16 11:03 | Outpatient (BNVA) | payer MEDICARE, SELFPAY | PROVIDERS: Visit Provider Specialist | DX: R29.90 Unspecified symptoms and signs involving the nervous system (principal); R56.9 Unspecified convulsions; R07.89 Other chest pain; F41.1 Generalized anxiety disorder | CPT/HCPCS: 96116; 99214 ==

== ENCOUNTER 2024-08-24 21:41 | Emergency (ER) | payer MEDICARE, SELFPAY ==
[2024-08-24 21:42] VITALS: BP 162/94; PULSE 69; RESP 16; TEMP 36.7; O2SAT 96; BMI 29.2
--- NOTE | 2024-08-24 21:45 | XRR_ITS ---
PROCEDURE INFORMATION: Exam: XR Right Shoulder Exam date and time: 08/24/2024 11:12 PM Age: 68 years old Clinical indication: Pain; Shoulder; Right; Additional info: Pain, fall TECHNIQUE: Imaging protocol: Radiologic exam of the right shoulder. Views: 2 or more views. COMPARISON: CT angio chest [id number] 01/29/2023 4:00 PM FINDINGS: Bones/joints: Normal. Soft tissues: Normal. XR/XR shoulder RT min 2V* [id number] IMPRESSION: No acute findings.
--- NOTE | 2024-08-24 22:37 | ED_ITS ---
HPI - Extremity Problem General: Chief complaint: Extremity Injury, Upper Stated complaint: fall, R shoulder pain Time Seen by Provider: 08/24/24 21:50 Source: patient Mode of arrival: ambulatory Limitations: no limitations History of Present Illness: Patient is a 68-year-old male who presents emergency department with right upper extremity pain onset prior to arrival. Reportedly fell on an outstretched right arm, pain with any range of motion at the shoulder. Pain reported to be 0/10 at rest, but is a 10/10 with range of motion. No other injuries reported with the fall. Has not taken anything for pain. States that he recently strained his right upper extremity from falling on ice, was not evaluated at that time. No previous dislocation or fracture of the right upper extremity. MD Complaint: joint pain Onset (ago): hour(s) Pain Consistency: constant Location: right and upper extremity Radiation: none Relieving factors: immobilization Exacerbating factors: range of motion Associated symptoms: Deny chest pain, fever(s) or rash Related Data Home Medications ?Medication ?Instructions ?Recorded ?Confirmed alprazolam 0.25 mg tablet 0.25 mg PO DAILY@16 07/03/20 07/16/23 diphenhydramine HCl 25 mg capsule 25 mg PO Q6H PRN All ergy Symptoms 07/03/20 07/16/23 (Benadryl) hydrochlorothiazide 25 mg tablet 25 mg PO QAM 07/03/20 07/16/23 fluticasone propionate 50 1 spray intranasal BID 02/2507/16/23 mcg/actuation nasal spray,suspension (Flonase Allergy Relief) epinephrine 0.3 mg/0.3 mL See Rx Instructions .Route . COMPLEX 04/16/23 07/16/23 injection, auto-injector guaifenesin 600 mg tablet, 300 mg PO BEDTIME 04/16/23 07/16/23 extended release 12 hr (Mucinex) Previous Rx's ?Medication ?Instructions ?Recorded Cam Walker #1 ea 01/31/21 citalopram 20 mg tablet 20 mg PO DAILY #90 tabs 06/18 07/09 Allergies Allergy/AdvReac Type Severity Reaction Status Date / Time amoxicillin Allergy anaphylaxis Verified 08/24/24 21:49 cefixime (From Suprax) Allergy ALGY-Hives Verified 08/24/24 21:49 erythromycin base Allergy ALGY-Hives Verified 08/24/24 21:49 hydrocodone Allergy anaphylaxis Verified 08/24/24 21:49 Penicillins Allergy anaphylaxis Verified 08/24/24 21:49 Review of Systems General: Reports: 10 or more systems reviewed and unremarkable except in HPI and below Const: Denies: fever(s) or chills Card: Denies: chest pain Resp: Denies: dyspnea or productive cough GI: Denies: abdominal pain, nausea, vomiting or diarrhea : Denies: flank pain Musc: Reports: joint pain (right shoulder) and limited range of motion; Denies: neck pain, back pain, extremity pain, extremity swelling, joint swelling, joint redness, joint warmth or muscle weakness Skin/Breast: Denies: rash Neuro: Denies: headache(s), numbness in extremities or weakness in extremities PFSH ED PFSH: Medical History Aortic atherosclerosis Chronic diastolic (congestive) heart failure Essential hypertension Shortness of breath on exertion Chest pain Leg edema Hilar lymphadenopathy Gluten intolerance Major depressive disorder Generalized anxiety disorder Surgical History History of throat surgery Hx of cholecystectomy Family History Mother Dementia Diabetes Brother Diabetes Other Thyroid disease Denies family history of CAD (coronary artery disease) Clotting disorder Chronic kidney disease (CKD) Suicide Anesthesia complication Bleeding disorder Lung disease Cancer Stroke Social History Smoking and tobacco/nicotine status: never used tobacco/nicotine Second hand smoke exposure: Yes Alcohol intake: never Substance/Drug Use: never Lives independently: Yes Household members: spouse Marital status: service: No Current occupational status: employed Current occupation: self-employed Pets and animals: Yes Do you think of yourself as: Straight/Heterosexual Current gender identity: Male Physical Exam Const: COMMON NORMALS: no acute distress, patient oriented x3, no limitations, healthy appearing, alert and well nourished HENMT: COMMON NORMALS: normocephalic and atraumatic HEAD & SCALP: normocephalic and atraumatic Neck/C-Spine: COMMON NORMALS: full ROM, supple and no meningeal signs Resp: COMMON NORMALS: normal respiratory effort, No use of accessory muscles and clear to auscultation bilaterally AUSCULTATION: clear to auscultation bilaterally Cardio: COMMON NORMALS: regular rate and regular rhythm RATE: regular rate RHYTHM: regular rhythm Extremity: COMMON NORMALS: normal to inspection, capillary refill normal, no joint enlargement and no clubbing, cyanosis or edema NARRATIVE EXTREMITY EXAM: No reproducible tenderness to palpation of right shoulder. Does not attempt range of motion at the right upper extremity secondary to pain. Distal radial pulse intact. No obvious deformity. No bruising or swelling. Neuro: COMMON NORMALS: patient oriented x3, moves all extremities, no focal motor deficits and no sensory deficits noted SENSORIUM/ORIENTATION: Yes alert MENINGEAL SIGNS: Yes no meningeal signs Skin: COMMON NORMALS: no rashes or lesions noted GENERAL SKIN EXAM: no rashes or lesions noted Course Vital Signs: Vital signs: Vital Signs Temperature 98.1 F 08/24/24 21:42 Pulse Rate 59 L 08/25/24 00:41 Respiratory Rate 16 08/25/24 00:41 Blood Pressure 131/83 08/25/24 00:41 Pulse Oximetry 96 08/25/24 00:41 Oxygen Delivery Me thod Room Air 08/24/24 23:50 MDM - Extremity (Nontraumatic) Medical Decision Making Patient presented with right upper extremity pain after falling on outstretched right arm. No range of motion attempted during exam secondary to pain, radial pulse was intact and there was no reproducible tenderness to palpation. X-ray did not show any humeral fracture or other acute findings. Sling for comfort and ultimately informed him to follow-up with primary care if he continues to have pain so that he can obtain MRI. He denied pain medication here in the ED. Return precautions given. Lab Data Radiology Impressions Shoulder X-Ray 08/24/24 21:45 IMPRESSION: No acute findings. All radiology interpretation(s) finalized by discharge Discharge Plan Discharge Patient Disposition: Home Clinical Impression: Right shoulder strain Qualifiers: Encounter type: initial encounter Qualified Code(s): S46.911A - Strain of unspecified muscle, fascia and tendon at shoulder and upper arm level, right arm, initial encounter Condition: Stable Prescriptions: No Action (DME) Cam Walker See Rx Instructions .ROUTE .MEDSUPPLY Qty: 1 0RF Rx Instructions: As directed hydrochlorothiazide 25 mg tablet 25 mg PO QAM alprazolam 0.25 mg tablet 0.25 mg PO DAILY@16 diphenhydramine HCl [Benadryl] 25 mg capsule 25 mg PO Q6H PRN (Reason: Allergy Symptoms) fluticasone propionate [Flonase Allergy Relief] 50 mcg/actuation spray,suspension 1 spray intranasal BID Rx Instructions: administer into each nostril citalopram 20 mg tablet 20 mg PO DAILY Qty: 90 1RF epinephrine 0.3 mg/0.3 mL auto-injector See Rx Instructions .ROUTE .COMPLEX Rx Instructions: as directed as needed Mucinex 600 mg Tablet Extended Release 12hr 300 mg PO BEDTIME Discharge Orders: Discharge ED (Routine); Ordered 08/25/24 Ordered By: Edmar Milton Referrals: Georgia Leyva DO [Primary Care Provider] - Patient Instructions: Rotator Cuff Injury (ED) Activity Restrictions/Additional Instructions: Sling for comfort. Range of motion exercises as tolerated. Take Tylenol for pain. Follow-up with primary care. Please see the attached patient instructions for further education. Print Language: Frisian Coding Level of Care Code ED Supervisor Maintenance for Mika Smith
[2024-08-24 23:50] VITALS: BP 129/79; PULSE 56; RESP 16; O2SAT 95
[2024-08-25 00:41] VITALS: BP 131/83; PULSE 59; RESP 16; O2SAT 96
== END 2024-08-25 00:41 | disposition home or self-care (01) ==
PROVIDERS: Emergency Provider Physician Assistant; PCP Family Medicine
DX: S46.911A Strain of unspecified muscle, fascia and tendon at shoulder and upper arm level, right arm, initial encounter (principal); W19.XXXA Unspecified fall, initial encounter
CPT/HCPCS: 73030; 99283